=== PATIENT | male | born 1960 | race Caucasian/White ===

== ENCOUNTER 2017-05-20 14:54 | Inpatient (IN) | payer OTHER ==
[~2017-05-20] VITALS: Ht 170.2 cm; Wt 108.0 kg
[2017-05-20] MEDS ORDERED: SOD CHLORIDE 0.9% 1,000 ML IV STA (15:44)
[2017-05-20] MEDS ORDERED: HYDROmorphONE 2 MG/ML SYG IM ONE (16:00)
[2017-05-20] MEDS ORDERED: ONDANSETRON 4 MG INJ IV ONE (16:00)
[2017-05-20] MEDS ORDERED: HYDROmorphONE 1 MG/ML SYG IV STA ×2 (16:03→21:01)
[2017-05-20 16:14] LABS: ADD SCAN DIFF NO
[2017-05-20 16:16] LABS: ABNORMAL IP MESSAGE 1; HEMATOCRIT 38.9 % (42.0-52.0); HEMOGLOBIN 13.1 g/dl (14.0-18.0); MEAN CORPUSCULAR HEMOGLOBIN 26.6 pg (29.0-33.0); MEAN CORPUSCULAR HGB CONC 33.7 g/dl (32.0-37.0); MEAN CORPUSCULAR VOLUME 79.1 fl (82.0-101.0); PLATELET COUNT 93 10^3/UL (140-415); RED BLOOD COUNT 4.92 10^6/ul (4.70-6.10); WHITE BLOOD COUNT 9.5 10^3/ul (4.8-10.8)
[2017-05-20 16:30] LABS: INR 0.94; PROTIME 12.6 Sec (12.2-14.2)
[2017-05-20 16:31] LABS: PARTIAL THROMBOPLASTIN TIME 22.6 Sec (25.0-35.0)
[2017-05-20 16:34] LABS: ALBUMIN/GLOBULIN RATIO 1.56; BILIRUBIN,INDIRECT 0.3 mg/dl (0-1.1); BILIRUBIN,TOTAL 0.3 mg/dl (0.2-1.3); CALCIUM 9.6 mg/dl (8.4-10.2); CREATININE 0.68 mg/dl (0.61-1.24); POTASSIUM 3.7 mmol/L (3.5-5.1); TOTAL PROTEIN 8.2 g/dl (6.1-8.1)
--- NOTE | 2017-05-20 16:38 | RADRPT ---
PROCEDURE: XR Wrist. CLINICAL INDICATION: Trauma TECHNIQUE: AP, lateral and oblique views of the right wrist were performed. COMPARISON: No prior studies are available for comparison. FINDINGS: There is a comminuted fracture of the distal radial metadiaphysis noting mild dorsal subluxation and angulation of the distal fragment. There may be articular surface involvement. There is a minimal ly displaced ulnar styloid fracture. Positive ulnar variance is noted. The carpal alignment is oth erwise preserved. No additional fractures are seen. IMPRESSION: 1. Distal radial and ulnar fractures, as above. RPTAT: PP .Jamil Tabares MD, MD Date Time Electronically viewed and signed by .Jamil Tabares MD, on 05/20/2017 16:38 .d/
--- NOTE | 2017-05-20 16:38 | RADRPT ---
PROCEDURE: Chest x-ray CLINICAL INDICATION: Trauma with chest pain TECHNIQUE: Chest single view COMPARISON: None FINDINGS: The heart is normal in size. The pulmonary vessels are normal in caliber. The lungs are clear. Th e costophrenic angles are sharp. The visualized bony thorax is unremarkable. IMPRESSION: No acute cardiopulmonary disease. There is no evidence of pneumothorax RPTAT: HH .Galileo Maxwell MD, MD Date Time Electronically viewed and signed by .Galileo Maxwell MD, MD on 05/20/2017 16:38 .W/
--- NOTE | 2017-05-20 16:39 | RADRPT ---
PROCEDURE: XR Wrist. CLINICAL INDICATION: Trauma TECHNIQUE: AP, lateral and oblique views of the left wrist were performed. COMPARISON: No prior studies are available for comparison. FINDINGS: There is a mildly impacted and likely comminuted fracture of the distal radial metadiaphysis noting mild dorsal tilt of the distal radial articular surface. The distal ulna appears intact. Carpal ali gnment is preserved as well. There is a healed post fracture deformity of the fifth metacarpal. The re is marked soft tissue swelling about the wrist. IMPRESSION: 1. Comminuted, mildly impacted and minimally displaced distal radial fracture. 2. Soft tissue swelling. RPTAT: PP .Jamil Tabares MD, Date Time Electronically viewed and signed by .Jamil Tabares MD, on 05/20/2017 16:39 .d/
[2017-05-20 16:49] LABS: EOSINOPHILS # 0.2 10^3/ul (0.0-0.5); LYMPHOCYTES # 1.4 10^3/ul (0.8-2.9); MONOCYTE # 0.3 10^3/ul (0.3-0.9); NEUTROPHIL # 7.4 10^3/ul (1.6-7.5)
[2017-05-20 16:50] LABS: PLATELET ESTIMATE PLT APPEAR DECREASED
--- NOTE | 2017-05-20 16:50 | RADRPT ---
PROCEDURE: CT Brain without contrast. CLINICAL INDICATION: Headache status post trauma TECHNIQUE: A CT of the brain was performed on a multidetector CT scanner utilizing axial sections from the skull base through the vertex without contrast. Images were reviewed on a high-resolution uiu workstation. Exam CTDI = 42.56, and 2.44 mGy and the DLP = 725.12 mGy-cm. One or more of the following dose reduction techniques were used: Automated exposure control Adjustment of the mA and/or kV according to patient size. Use of iterative reconstruction technique. COMPARISON: None available FINDINGS: There is no evidence of intracranial hemorrhage, mass effect or midline shift. No abnormal intra-ax ial or extra-axial fluid collections are seen. The density of the brain is normal and the evangelista/whit e matter differentiation is well preserved. The osseous structures are unremarkable. Paranasal si nuses are clear. There is a small calcification in the medial aspect of the right inferior eyelid. IMPRESSION: 1. No intracranial hemorrhage, mass effect or midline shift. RPTAT: BB .Rosie Estrada MD, MD Date Time Electronically viewed and signed by .Rosie Estrada MD, on 05/20/2017 16:49 .O/
--- NOTE | 2017-05-20 17:27 | RADRPT ---
PROCEDURE: CT Cervical Spine. CLINICAL INDICATION: Trauma, neck pain TECHNIQUE: A CT of the cervical spine was performed utilizing thin section axial images from the skull base through the thoracic inlet. Sagittal and coronal reformatted images were made. The CTDI vol is 22.22 mGy and the DLP is 491.47 mGycm. One or more the following dose reduction techniques were utilized: Automated exposure control, adjus tment of the mA and / or kV according to patient's size, or use of iterative reconstruction techniqu e. COMPARISON: None. FINDINGS: Approximate 3 x 4 mm triangular calcific density is seen anterior to the superior endplate of C5 destiny tebral body. Although this appears corticated and may be chronic, an acute avulsion fracture fragmen t is not excluded. Otherwise, no fracture is seen. No dislocation is seen. Degenerative disk change s at C6-7. At C6-7 there is disk space narrowing, diffuse disk bulge, vertebral body osteophytes an d the appearance of a moderate left posterior disk protrusion with impression on the anterior spinal cord with moderate central spinal stenosis and mild bilateral foraminal stenosis. Uncovertebral deg enerative changes at C6-7. IMPRESSION: Approximate 3 x 4 mm triangular calcific density is seen anterior to the superior endplate of C5 destiny tebral body. Although this appears corticated and may be chronic, an acute avulsion fracture fragme nt is not excluded. MRI of the cervical spine is recommended for further evaluation. Degenerative c hanges. At C6-7 there is disk space narrowing, diffuse disk bulge, vertebral body osteophytes and th e appearance of a moderate left posterior disk protrusion with impression on the anterior spinal cor d with moderate central spinal stenosis and mild bilateral foraminal stenosis. Please see above. Dis cussed with HEATHER Kelley at 05:25 p.m. on 05/20/2017. RPTAT: HJES .Arash Butt MD, MD Date Time Electronically viewed and signed by .Arash Butt MD, on 05/20/2017 17:27 .S/
--- NOTE | 2017-05-20 17:33 | RADRPT ---
PROCEDURE: CT thoracic spine CLINICAL INDICATION: Trauma, back pain TECHNIQUE: A CT of the thoracic spine was performed utilizing high-resolution axial imaging from t he cervical thoracic junction through the thoracolumbar junction. Sagittal, coronal, and multiplana r reformatted images were made. The CTDIvol is 37.63 mGy and the DLP is 1502.05 mGycm. One or more the following dose reduction techniques were utilized: Automated exposure control, adjus tment of the mA and / or kV according to patient's size, or use of iterative reconstruction techniqu e. COMPARISON: FINDINGS: No acute fracture or dislocation is seen. No paraspinal soft tissue swelling is seen. No significan t focal disk protrusion or central spinal stenosis is seen in the thoracic spine. Mild degenerative disk changes at multiple levels in the mid thoracic spine. Degenerative changes at C6-7. IMPRESSION: No acute fracture or dislocation seen. Mild degenerative disk changes at multiple levels in the tho racic spine. Please see above. RPTAT: HJES .Arash Butt MD, MD Date Time Electronically viewed and signed by .Arash Butt MD, on 05/20/2017 17:33 .S/
--- NOTE | 2017-05-20 17:41 | RADRPT ---
PROCEDURE: CT Lumbar Spine. CLINICAL INDICATION: Trauma, low back pain TECHNIQUE: The study was performed on a multidetector CT scanner. Spiral axial 1 mm images were o btained through the lumbar spine and reformatted at 2.5 mm slice thickness. Sagittal and coronal ref ormations were created from the raw axial data. The images were reviewed on a PACS workstation. The administered radiation dose was CTDI vol = 38.53 mGy, DLP = 1101.09 mGy-cm. One or more the following dose reduction techniques were utilized: Automated exposure control, adjus tment of the mA and / or kV according to patient's size, or use of iterative reconstruction techniqu e. COMPARISON: No prior studies are available for comparison. FINDINGS: The vertebral bodies demonstrate normal height, alignment and osseous mineralization. Small Schmorl' s nodes at L5-S1. Small amount calcification in abdominal aorta. T12-L1: The disc and neuroforamina are unremarkable. L1-L2: The disc and neuroforamina are unremarkable. L2-L3: The disc and neuroforamina are unremarkable. L3-L4: The disc and neuroforamina are unremarkable. L4-L5: There is diffuse disk bulge, mild central spinal stenosis and mild bilateral foraminal stenos is. L5-S1: There is mild disk space narrowing, vacuum disk phenomenon, diffuse disk bulge, vertebral bod y osteophytes, and bilateral mild to moderate foraminal stenosis. Degenerative changes at sacroiliac joints. IMPRESSION: No acute fracture or dislocation seen. Degenerative changes noted above. Please see above. RPTAT: HJES .Arash Butt MD, Date Time Electronically viewed and signed by .Aarsh Butt MD, MD on 05/20/2017 17:41 .S/
[2017-05-20] MEDS ORDERED: HYDROmorphONE 2 MG/ML SYG IV STA (17:54)
[2017-05-20] MEDS: HYDROmorphONE 1 MG/ML SYG IV STA ×2 (18:01→18:02)
--- NOTE | 2017-05-20 18:15 | ERA ---
ER Documentation Chief Complaint Date/Time DATE: 05/20/17 TIME: 18:09 Chief Complaint Patient states that he from a 15 foot building HPI This is a very pleasant 57-year-old male that presents to the emergency department, brought in by himself, after he stated he fell roughly 10-15 feet just prior to arrival. 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 The patient landed on both outstretched hands and hit the front of his head. He does complain of mild neck pain and severe pain of his upper extremities. He denies any numbness or tingling of the upper extremities. He also is complaining of lower back pain that he states exacerbated when he ambulates. He complained of mild numbness of the lateral aspect of the left thigh. He stated he has used the bathroom since the incident and denied any gross hematuria. He states the headache is mild, frontal, 2 out of 10 in intensity with no changes in vision. He did not experience any hemoptysis or hematemesis. He is right-handed dominant. ROS All systems reviewed and are negative except as per history of present illness. Medications Home Meds No Active Prescriptions or Reported Meds Allergies Allergies: Coded Allergies: No Known Allergy (Unverified , 05/20/17) PMhx/Soc Medical and Surgical Hx: pt denies Medical Hx, pt denies Surgical Hx Hx Alcohol Use: Yes Hx Substance Use: No Hx Tobacco Use: No Smoking Status: Former smoker Physical Exam Vitals Vital Signs Date Time Temp Pulse Resp B/P Pulse Ox O2 Delivery O2 Flow Rate FiO2 05/20/17 18:34 99.7 81 22 131/75 94 Room Air 05/20/17 18:12 78 22 121/88 95 Room Air 05/20/17 14:59 99.7 74 20 186/96 97 Physical Exam Constitutional:Well-developed. Well-nourished. Patient appeared to be in a significant amount discomfort HEENT:Normocephalic. Atraumatic.Pupils were equal round reactive to light. Moist mucous membranes.No tonsillar exudates. Ecchymosis of the right forehead with no nasal septal hematoma no hemotympanum. Neck: No nuchal rigidity. No lymphadenopathy. Posterior cervical spine tenderness over C4-C5 with no step-offs. Respiratory: Not using accessory muscles of respiration.Lungs were clear to auscultation bilaterally. No rhonchi. No rales. No wheezing. Cardiovascular: Regular rate regular rhythm.No murmurs. No rubs were appreciated.S1, S2 normal. Distal pulses are palpable 2+ bilaterally. No flail chest no crepitus no ecchymosis. GI: Abdomen was soft. Nontender. Non Distended. No pulsatile abdominal masses or bruits. No rebound. No guarding. Bowel sounds were present and normal. No flank ecchymosis. No periumbilical ecchymosis Muscle skeletal: Lower extremities were of equal length and symmetrical with no internal or external rotation. No laxity on anterior posterior or lateral compression of the hip. Tenderness with palpation over L4-L5 with no tenderness with palpation or percussion over the thoracic spinous processes. Tenderness over the bilateral distal forearms and patient had no wrist drop, was unable to flex extend ulnar or radial deviate the bilateral wrists due to significant pain. Flexion extension of both elbows appear grossly normal. Patient was able to AB duct both upper extremities past 90 with no pain. No tenderness over the acromial clavicular process bilaterally. Normal lie to both humeral heads. Rectal: Normal sphincter tone. No gross blood Skin: No petechia, no purpura. No lesions on the palms or the soles of the feet. No maculopapular rash. NEURO: Patient was alert, awake, orientated x3.No facial droop. Gait observed and normal with no ataxia.Speech had regular rate and rhythm. No focal neurological deficits. Result Diagram: 05/20/17 1602 05/20/17 1602 Results 24 hrs Laboratory Tests Test 05/20/17 16:02 White Blood Count 9.510^3/ul Red Blood Count 4.9210^6/ul Hemoglobin 13.1g/dl Hematocrit 38.9% Mean Corpuscular Volume 79.1fl Mean Corpuscular Hemoglobin 26.6pg Mean Corpuscular Hemoglobin Concent 33.7g/dl Red Cell Distribution Width 15.0% Platelet Count 9310^3/UL Mean Platelet Volume fl Neutrophils % 78.0% Band Neutrophils % 2.0% Lymphocytes % 15.0% Monocytes % 3.0% Eosinophils % 2.0% Neutrophils # 7.410^3/ul Lymphocytes # 1.410^3/ul Monocytes # 0.310^3/ul Eosinophils # 0.210^3/ul Platelet Estimate PLT APPEAR DECREASED Prothrombin Time 12.6Sec Prothrombin Time Ratio 1.0 INR International Normalized Ratio 0.94 Activated Partial Thromboplast Time 22.6Sec Sodium Level 132mmol/L Potassium Level 3.7mmol/L Chloride Level 100mmol/L Carbon Dioxide Level 24mmol/L Anion Gap 12 Blood Urea Nitrogen 10mg/dl Creatinine 0.68mg/dl Glucose Level 148mg/dl Calcium Level 9.6mg/dl Total Bilirubin 0.3mg/dl Direct Bilirubin 0.00mg/dl Indirect Bilirubin 0.3mg/dl Aspartate Amino Transf (AST/SGOT) 25IU/L Alanine Aminotransferase (ALT/SGPT) 32IU/L Alkaline Phosphatase 74IU/L Total Protein 8.2g/dl Albumin 5.0g/dl Globulin 3.20g/dl Albumin/Globulin Ratio 1.56 Current Medications Medications (Trade) Dose Ordered Sig/Shu Route PRN Reason Start Time Stop Time Status Last Admin Dose Admin Sodium Chloride (NS) 1,000 ml @ 1,000 mls/hr Q1H STAT IV 05/20/17 15:44 05/20/17 16:43 DC 05/20/17 16:01 Hydromorphone HCl (Dilaudid) 1 mg ONCE ONCE IM 05/20/17 16:00 05/20/17 16:01 Cancel Ondansetron HCl (Zofran Inj) 4 mg ONCE ONCE IV 05/20/17 16:00 05/20/17 16:01 DC 05/20/17 16:01 Hydromorphone HCl (Dilaudid) 1 mg ONCE STAT IV 05/20/17 16:03 05/20/17 16:04 DC Hydromorphone HCl (Dilaudid) 2 mg ONCE STAT IV 05/20/17 17:28 05/20/17 17:29 DC Hydromorphone HCl (Dilaudid) 2 mg ONCE STAT IV 05/20/17 17:54 05/20/17 17:58 DC 05/20/17 18:03 Procedures/[facility] This patient presented to the emergency department after having a significant blunt trauma to the bilateral upper extremities and head. The patient had walked into the emergency department as he brought himself to the hospital and upon triage he was immediately placed in cervical spine immobilization with a c- collar. He was placed on a cardiac nurse continuous pulse oximetry and IV access was established by nursing staff. The patient received intravenous Dilaudid and Zofran for analgesic control. Compartments were soft of the bilateral upper extremities however the patient had fractures of the bilateral radius and ulna. There is no evidence of compartment syndrome. This was not an open fracture. The patient was placed in bilateral sugar tong splints for immobilization and comfort. I spoke with the orthopedic surgeon military personnel specialist Dr. Peña, who kindly stated he will be consulted on the case given that the patient is being admitted. Radiographic imaging of the left wrist indicated the followin. Comminuted, mildly impacted and minimally displaced distal radial fracture. 2. Soft tissue swelling. As obtained a CT scan of the patient's head and cervical spine. There is a questionable acute avulsion fracture of C5 and immediate neurosurgical consult was placed to Dr. Nicole who kindly immediately evaluated the patient. An MRI of the neck is been ordered on an emergent basis as requested the neurosurgeon. The MRI was reviewed by the radiologist myself and indicated that there was no acute fracture of the cervical spine and therefore at this time the patient will be admitted to the telemetry service for continued pain management. The patient will be admitted in serious condition to the hospitalist Dr. Ventura as the patient states he does not have a PCP. Critical Care: Time: 40 minutes Treatments/Evaluations: Close monitoring and treatment of unstable vital signs, cardiorespiratory, and neurologic status, while maintaining tight balance of fluid, respiratory, and cardiac interventions. Time does not include performing any of the above billable procedures. Departure Diagnosis: Primary Impression: Fall with significant injury Qualified Code: W19.XXXA - Fall with significant injury, initial encounter Additional Impressions: Distal radius fracture, left Qualified Code: S52.502A - Closed fracture of distal end of left radius, unspecified fracture morphology, initial encounter Distal radius fracture, right Qualified Code: S52.501A - Closed fracture of distal end of right radius, unspecified fracture morphology, initial encounter Fracture cervical vertebra-closed Qualified Code: S12.401A - Closed nondisplaced fracture of fifth cervical vertebra, unspecified fracture morphology, initial encounter Closed head injury Qualified Code: S09.90XA - Closed head injury, initial encounter Condition: Serious KEZIA PRAKASH May 20, 2017 18:15
--- NOTE | 2017-05-20 19:36 | CONS ---
Date/Time of Note Date/Time of Note DATE: 05/20/17 TIME: 19:04 Assessment/Plan Assessment/Plan Problems: (1) Fracture cervical vertebra-closed Status: Acute Comment: Patient status-post fall with bilateral wrist fractures. Hit head with amnesia for brief period but no LOC. Has been complaining of neck pain (as well as more severe bilateral wrist pain). Only craniocervical imaging issue is possible avulsion fracture in C-spine. This is likely chronic, but given mechanism acute fracture cannot be entirely ruled out. If acute fracture could be stable but also could be unstable. There are no signs or symptoms of spinal cord dysfunction. MRI has already been ordered. This will be useful to assess for ligamentous injury. If no ligamentous injury, then significant acute fracture is essentially ruled out. If significant signal abnormality in ligaments then will need further assessment wrt acute injury and further recommendations will be made. 1) Baudette collar should be ordered as extraction collar is not appropriate for ongoing use. 2) Bedrest until MRI is assessed. 3) Even if MRI negative, would recommend continuing C-spine collar until flexion /extension x-rays can be obtained. Qualifiers: Qualified Code: S12.401A - Closed nondisplaced fracture of fifth cervical vertebra, unspecified fracture morphology, initial encounter Consultation Date/Type/Reason Admit Date/Time Date of Consultation: May 20, 2017 Reason for Consultation possible c-spine fracture Hx of Present Illness This is a primarily singaporean speaking man seen with ER foreign language interpreter. 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 He fell out of the cab, falling about 10- 15 feet and landing on his outstretched arms as well as hitting either the front or top of his head. This was witnessed and there was no LOC as he began screaming in pain right away. The patient is vaguely amnestic. He remembers falling and then lying on the ground but does not remember hitting. He immediately had very severe bilateral arm/wrist pain and indeed has been found to have bilateral colles fractures. He also had signficant neck pain and to a lesser degree low back pain. Mild headache as well. No confusion. He was a walk-in to the ER. Had been able to urinate without difficulty. Initially he was having LLE pain, but this has resolved. Denies numbness in any extremity. Does not think he has weakness, but it is difficult for him to say for sure wrt UEs since they are fractured and splinted. No pain radiating from neck to down the arms. Respiratory: No shortness of breath Cardiovascular: No chest pain Gastrointestinal: No pain Genitourinary: No hematuria Musculoskeletal: back pain, neck pain Neurologic: headache, No confusion, No focal-weakness Past Medical History Medical History: diabetes Past Surgical History Past Surgical Hx: no surgical history Social History Alcohol Use: occasionally Smoking Status: Former smoker Other Social History Originally from [place]. at the bedside. Exam/Review of Systems Vital Signs Vitals Vital Signs Date Time Temp Pulse Resp B/P Pulse Ox O2 Delivery O2 Flow Rate FiO2 05/20/17 18:34 99.7 81 22 131/75 94 Room Air Exam Constitutional: alert, oriented, well developed Head: other (abrasions over forehead and crown) Eyes: EOMI, PERRL Neck: other (extraction collar in place) Extremities: other (bilateral wrist splints), No edema Neurological: nl mental status, nl speech, No confused, No lethargic, No numbness (A+Ox3, speech clear, appropriate in responses. face symmetric, tongue midline. Deltoids 5/5, wiggles fingers bilaterally, more detailed UE strength exam impossible; LEs 5/5 quad/ham/dorsi/ plantar; normal muscle bulk; sensation intact LT both hands, LEs, no sensory level; DTRs 2+/2 bicep/knees/ankles; toes downgoing bilat) Results I reviewed CT C-spine -small anterior osteophyte C4-5 either acutely or chronically avulsed. straightening of normal lordosis but otherwise no abnormalities of alignment; degen change worst at C5-6 but not severe; prevertebral soft tissue appears to be within normal limits CT brain normal; CT T-spine and LS-spine unremarkable other than degenerative changes Result Diagram: 05/20/17 1602 05/20/17 1602 Results 24 hrs Laboratory Tests Test 05/20/17 16:02 White Blood Count 9.5 Red Blood Count 4.92 Hemoglobin 13.1 L Hematocrit 38.9 L Mean Corpuscular Volume 79.1 L Mean Corpuscular Hemoglobin 26.6 L Mean Corpuscular Hemoglobin Concent 33.7 Red Cell Distribution Width 15.0 H Platelet Count 93 L Mean Platelet Volume Neutrophils % 78.0 H Band Neutrophils % 2.0 Lymphocytes % 15.0 Monocytes % 3.0 Eosinophils % 2.0 Neutrophils # 7.4 Lymphocytes # 1.4 Monocytes # 0.3 Eosinophils # 0.2 Platelet Estimate PLT APPEAR DECREASED Prothrombin Time 12.6 Prothrombin Time Ratio 1.0 INR International Normalized Ratio 0.94 Activated Partial Thromboplast Time 22.6 L Sodium Level 132 L Potassium Level 3.7 Chloride Level 100 Carbon Dioxide Level 24 Anion Gap 12 Blood Urea Nitrogen 10 Creatinine 0.68 Glucose Level 148 Calcium Level 9.6 Total Bilirubin 0.3 Direct Bilirubin 0.00 Indirect Bilirubin 0.3 Aspartate Amino Transf (AST/SGOT) 25 Alanine Aminotransferase (ALT/SGPT) 32 Alkaline Phosphatase 74 Total Protein 8.2 H Albumin 5.0 H Globulin 3.20 Albumin/Globulin Ratio 1.56 ELVA OLIVEIRA MD May 20, 2017 19:16
--- NOTE | 2017-05-20 20:37 | RADRPT ---
PROCEDURE: MRI Cervical Spine. CLINICAL INDICATION: Neck pain following trauma and possible C5 fracture TECHNIQUE: An MRI of the cervical spine [facility] the following sequences: Sagittal T1 weighted, sagittal and axial T2 weighted, sagittal T2 weighted with fat saturation, delete the and axial GRE. COMPARISON: CT c-spine 05/20/2017 FINDINGS: There is straightening of the normal lordosis of the cervical spine. Preservation of vertebral body heights and signal are noted. No acute fractures, traumatic subluxations, or ligamentous injury is noted. The vertebral bodies are normal in height and signal intensity. The signal intensities of t he discs are remarkable for disk desiccation at the C3-4 through C6-7 levels.. The cervical cord is normal in caliber and signal intensity. The craniocervical junction is unremarkable. The prevertebra l soft tissues are normal. The specific axial levels are as follows: Occiput to C2: No evidence for pathology or stenosis is present. C2-3: The central canal, subarticular recess and neural foramen are patent. C3-4: Disk desiccation is present with a moderate 4.9 mm broad-based disk osteophyte complex. AP ca nal dimension is 8.7 mm. Mild bilateral facet arthropathy and uncovertebral osteophytes are present . The above findings contribute to a mild central canal stenosis, bilateral subarticular recess lucio nosis, and mild bilateral neural foraminal stenosis. C4-5: Disk desiccation is present with a mild 2 mm broad-based bulge. Mild bilateral uncovertebral osteophyte and facet arthropathy is present. The central canal, subarticular recess, and neural for amen are patent. C5-6: Disk desiccation is present with a mild broad-based 2-mm disk osteophyte complex. AP canal di mension is 9.9 mm This results in a mild central canal stenosis without subarticular recess or neura l foraminal stenosis. C6-7: Disk desiccation is present with a large 5 mm broad-based disk osteophyte complex. Superimpose d on this large broad-based disk osteophyte complex is a central 3 mm disk extrusion which herniates caudally to the mid C7 level. This is approximately 6.5 mm in length. AP canal dimension is 7 mm. Bilateral uncovertebral osteophytes and facet arthropathy is present. This results in a moderate ce ntral, bilateral subarticular recess stenosis , and bilateral severe neural foraminal stenosis. C7-T1: The intervertebral disk is normal height and signal. A 3 mm disk osteophyte protrusion is pr esent. AP canal dimension is 9.7 mm. This contributes to mild central canal stenosis without subart icular recess or neural foraminal stenosis. IMPRESSION: 1. No evidence for acute fractures or traumatic subluxations. 2. 3 mm AP by 6.5 mm superior inferiorly central disk extrusion superimposed on large broad-based d isk osteophyte complex at C6-7. 3. Multilevel broad-based disk osteophyte complexes at the C3-4 through C7-T1 levels with moderate central canal stenosis at C6-7 and mild at C3-4, C5-6 and C7-T1 levels. 4. Multilevel neural foraminal stenosis at the C3-4 and C6-7 levels. 5. Straightening of the normal cervical lordosis. A call report was made to Alyssa Saucedo at 05/20/2017 8:33:38 PM following the completion of the examination by the undersigned. RPTAT: HDC .Teresita Murcia MD, Date Time Electronically viewed and signed by .Teresita Murcia MD, MD on 05/20/2017 20:37 .C/
[2017-05-20] MEDS ORDERED: ONDANSETRON 4 MG INJ IV STA (21:01)
[2017-05-20 22:00] VITALS: BP 164/82; RESP 18
[2017-05-20 22:07] VITALS: PULSE 75; TEMP 98.5
[2017-05-20 22:59] VITALS: Ht 170.2 cm; Wt 108.0 kg
[2017-05-20] MEDS ORDERED: METF-480 PO (23:08)
--- NOTE | 2017-05-20 23:27 | HP ---
Date/Time of Note Date/Time of Note DATE: 05/20/17 TIME: 23:23 Assessment/Plan VTE Prophylaxis VTE Prophylaxis Intervention: SCD's Assessment/Plan Chief Complaint/Hosp Course This is a 57-year-old male being admitted to the [facility] floor: #1 Traumatic fall: Patient sustained a traumatic fall while on a tractor type vehicle. He has sustained bilateral fractures of the wrists please see x-rays were done. The pain however MRI did not show any acute fractures please see further report for additional findings. At the current time will await further recommendations from the consultants of neurosurgery and orthopedic surgery. Patient will remain in C-spine collar. Patient has already been casted in the wrists. Please see additional CT scan imaging for further information. #2 neck pain: Status post traumatic fall MRI did not show any evidence for acute fractures or traumatic subluxations. Please see MRI report for further information. Keep the patient in in C spine collar. Await neurosurgery. #3 bilateral wrist fractures: Please see x-rays for further information regarding the fracture. Patient currently has been casted both the right upper extremities. Follow orthopedic recommendations. #4 Diabetes mellitus: Patient is on oral medications. Will check a hemoglobin A1c. Insulin sliding scale. #5 DVT and GI prophylaxis: SCDs, Protonix Further treatment strategy as per the course. Problems: HPI/ROS Admit Date/Time Admit Date/Time Hx of Present Illness Chief complaint: Fall injury to arms pain in the neck This is a very pleasant 57-year-old male that presents to the emergency department, brought in by himself, after he stated he fell roughly 10-15 feet just prior to arrival. 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 The patient landed on both outstretched hands and hit the front of his head. He does complain of mild neck pain and severe pain of his upper extremities. He denies any numbness or tingling of the upper extremities. He also is complaining of lower back pain that he states exacerbated when he ambulates. He complained of mild numbness of the lateral aspect of the left thigh. He stated he has used the bathroom since the incident and denied any gross hematuria. He states the headache is mild, frontal, 2 out of 10 in intensity with no changes in vision. He did not experience any hemoptysis or hematemesis. He is right-handed dominant. ROS Const: As per HPI Eyes : No pain discharge or redness or change in visual acuity ENT: No pain, sore throat, congestion, congestion, dysphagia or discharge Respiratory: No shortness of breath, cough, sputum, wheezing, or pleuritic pain Cardiovascular: No chest pain, palpitation, PND, or edema GI : no change in appetite, abdominal pain, nausea, vomiting, diarrhea, constipation, or change in the color his stool Genitourinary: No dysuria, hematuria, flank pain , discharge or CVA tenderness Musculoskeletal: As per HPI Skin: No rash, bruising or hives Neuro: As per HPI Endocrine: No polyuria, polydipsia, temperature intolerance Psych: No hallucination, depression, anxiety or suicidal ideation Respiratory: No shortness of breath Cardiovascular: No chest pain Gastrointestinal: No pain Genitourinary: No hematuria Musculoskeletal: back pain, neck pain Neurologic: headache, No confusion, No focal-weakness PMH/Family/Social Past Medical History Medical History: diabetes Past Surgical History Past Surgical Hx: no surgical history Social History Alcohol Use: occasionally Smoking Status: Former smoker Exam/Review of Systems Vital Signs Vitals Vital Signs Date Time Temp Pulse Resp B/P Pulse Ox O2 Delivery O2 Flow Rate FiO2 05/20/17 22:07 98.5 75 16 130/72 95 Room Air Exam Exam General: Mild distress pain HEENT: Atraumatic, normocephalic. The pupils are equal, round and reactive. Extraocular motor are intact Neck: Tender to palpation of the C-spine around the C4-C7 area Chest: Nontender Lungs: Clear to auscultation bilaterally no crackles rales or wheezing Heart: Normal S1-S2, Regular rhythm and rate. No murmur, S3, or S4 Abdomen: Soft , nontender, nondistended , bowel sounds are present. No guarding no rebound tenderness , No masses or organomegaly. No costovertebral temporal angle mass Extremities: Bilateral casts of the right upper extremities, tenderness to palpation along the thoracic and lumbar spine. Neurologic: Normal mental status, speech normal, cranial nerves II through XII are intact, motor and sensory are intact, no focal weakness Additional Comments PROCEDURE: MRI Cervical Spine. CLINICAL INDICATION: Neck pain following trauma and possible C5 fracture TECHNIQUE: An MRI of the cervical spine was performed on a hi-definition high- resolution MRI scanner utilizing the following sequences: Sagittal T1 weighted, sagittal and axial T2 weighted, sagittal T2 weighted with fat saturation, delete the and axial GRE. COMPARISON: CT c-spine 05/20/2017 FINDINGS: There is straightening of the normal lordosis of the cervical spine. Preservation of vertebral body heights and signal are noted. No acute fractures , traumatic subluxations, or ligamentous injury is noted. The vertebral bodies are normal in height and signal intensity. The signal intensities of the discs are remarkable for disk desiccation at the C3-4 through C6-7 levels.. The cervical cord is normal in caliber and signal intensity. The craniocervical junction is unremarkable. The prevertebral soft tissues are normal. The specific axial levels are as follows: Occiput to C2: No evidence for pathology or stenosis is present. C2-3: The central canal, subarticular recess and neural foramen are patent. C3-4: Disk desiccation is present with a moderate 4.9 mm broad-based disk osteophyte complex. AP canal dimension is 8.7 mm. Mild bilateral facet arthropathy and uncovertebral osteophytes are present. The above findings contribute to a mild central canal stenosis, bilateral subarticular recess stenosis, and mild bilateral neural foraminal stenosis. C4-5: Disk desiccation is present with a mild 2 mm broad-based bulge. Mild bilateral uncovertebral osteophyte and facet arthropathy is present. The central canal, subarticular recess, and neural foramen are patent. C5-6: Disk desiccation is present with a mild broad-based 2-mm disk osteophyte complex. AP canal dimension is 9.9 mm This results in a mild central canal stenosis without subarticular recess or neural foraminal stenosis. C6-7: Disk desiccation is present with a large 5 mm broad-based disk osteophyte complex. Superimposed on this large broad-based disk osteophyte complex is a central 3 mm disk extrusion which herniates caudally to the mid C7 level. This is approximately 6.5 mm in length. AP canal dimension is 7 mm. Bilateral uncovertebral osteophytes and facet arthropathy is present. This results in a moderate central, bilateral subarticular recess stenosis , and bilateral severe neural foraminal stenosis. C7-T1: The intervertebral disk is normal height and signal. A 3 mm disk osteophyte protrusion is present. AP canal dimension is 9.7 mm. This contributes to mild central canal stenosis without subarticular recess or neural foraminal stenosis. IMPRESSION: 1. No evidence for acute fractures or traumatic subluxations. 2. 3 mm AP by 6.5 mm superior inferiorly central disk extrusion superimposed on large broad-based disk osteophyte complex at C6-7. 3. Multilevel broad-based disk osteophyte complexes at the C3-4 through C7-T1 levels with moderate central canal stenosis at C6-7 and mild at C3-4, C5-6 and C7-T1 levels. 4. Multilevel neural foraminal stenosis at the C3-4 and C6-7 levels. 5. Straightening of the normal cervical lordosis. A call report was made to Alyssa Saucedo at 05/20/2017 8:33:38 PM following the completion of the examination by the undersigned. RPTAT: HDC .Teresita Murcia MD, MD Date Time Electronically viewed and signed by .Teresita Murcia MD, MD on 05/20/2017 20: 37 PROCEDURE: CT Brain without contrast. CLINICAL INDICATION: Headache status post trauma TECHNIQUE: A CT of the brain was performed on a multidetector CT scanner utilizing axial sections from the skull base through the vertex without contrast. Images were reviewed on a high-resolution PACS workstation. Exam CTDI = 42.56, and 2.44 mGy and the DLP = 725.12 mGy-cm. One or more of the following dose reduction techniques were used: Automated exposure control Adjustment of the mA and/or kV according to patient size. Use of iterative reconstruction technique. COMPARISON: None available FINDINGS: There is no evidence of intracranial hemorrhage, mass effect or midline shift. No abnormal intra-axial or extra-axial fluid collections are seen. The density of the brain is normal and the evangelista/white matter differentiation is well preserved. The osseous structures are unremarkable. Paranasal sinuses are clear. There is a small calcification in the medial aspect of the right inferior eyelid. IMPRESSION: 1. No intracranial hemorrhage, mass effect or midline shift. RPTAT: BB .Rosie Estrada MD, Date Time Electronically viewed and signed by .Rosie Estrada MD, MD on 05/20/2017 16:49 PROCEDURE: CT Cervical Spine. CLINICAL INDICATION: Trauma, neck pain TECHNIQUE: A CT of the cervical spine was performed utilizing thin section axial images from the skull base through the thoracic inlet. Sagittal and coronal reformatted images were made. The CTDIvol is 22.22 mGy and the DLP is 491.47 mGycm. One or more the following dose reduction techniques were utilized: Automated exposure control, adjustment of the mA and / or kV according to patient's size, or use of iterative reconstruction technique. COMPARISON: None. FINDINGS: Approximate 3 x 4 mm triangular calcific density is seen anterior to the superior endplate of C5 vertebral body. Although this appears corticated and may be chronic, an acute avulsion fracture fragment is not excluded. Otherwise, no fracture is seen. No dislocation is seen. Degenerative disk changes at C6- 7. At C6-7 there is disk space narrowing, diffuse disk bulge, vertebral body osteophytes and the appearance of a moderate left posterior disk protrusion with impression on the anterior spinal cord with moderate central spinal stenosis and mild bilateral foraminal stenosis. Uncovertebral degenerative changes at C6-7. IMPRESSION: Approximate 3 x 4 mm triangular calcific density is seen anterior to the superior endplate of C5 vertebral body. Although this appears corticated and may be chronic, an acute avulsion fracture fragment is not excluded. MRI of the cervical spine is recommended for further evaluation. Degenerative changes. At C6-7 there is disk space narrowing, diffuse disk bulge, vertebral body osteophytes and the appearance of a moderate left posterior disk protrusion with impression on the anterior spinal cord with moderate central spinal stenosis and mild bilateral foraminal stenosis. Please see above. Discussed with HEATHER Kelley at 05:25 p.m. on 05/20/2017. RPTAT: HJES .Arash Butt MD, MD Date Time Electronically viewed and signed by .Arash Butt MD, MD on 05/20/2017 17:27 PROCEDURE: Chest x-ray CLINICAL INDICATION: Trauma with chest pain TECHNIQUE: Chest single view COMPARISON: None FINDINGS: The heart is normal in size. The pulmonary vessels are normal in caliber. The lungs are clear. The costophrenic angles are sharp. The visualized bony thorax is unremarkable. IMPRESSION: No acute cardiopulmonary disease. There is no evidence of pneumothorax RPTAT: HH .Galileo Maxwell MD, MD Date Time Electronically viewed and signed by .Galileo Maxwell MD, MD on 05/20/2017 16:38 PROCEDURE: CT Lumbar Spine. CLINICAL INDICATION: Trauma, low back pain TECHNIQUE: The study was performed on a multidetector CT scanner. Spiral axial 1 mm images were obtained through the lumbar spine and reformatted at 2.5 mm slice thickness. Sagittal and coronal reformations were created from the raw axial data. The images were reviewed on a PACS workstation. The administered radiation dose was CTDI vol = 38.53 mGy, DLP = 1101.09 mGy-cm. One or more the following dose reduction techniques were utilized: Automated exposure control, adjustment of the mA and / or kV according to patient's size, or use of iterative reconstruction technique. COMPARISON: No prior studies are available for comparison. FINDINGS: The vertebral bodies demonstrate normal height, alignment and osseous mineralization. Small Schmorl's nodes at L5-S1. Small amount calcification in abdominal aorta. T12-L1: The disc and neuroforamina are unremarkable. L1-L2: The disc and neuroforamina are unremarkable. L2-L3: The disc and neuroforamina are unremarkable. L3-L4: The disc and neuroforamina are unremarkable. L4-L5: There is diffuse disk bulge, mild central spinal stenosis and mild bilateral foraminal stenosis. L5-S1: There is mild disk space narrowing, vacuum disk phenomenon, diffuse disk bulge, vertebral body osteophytes, and bilateral mild to moderate foraminal stenosis. Degenerative changes at sacroiliac joints. IMPRESSION: No acute fracture or dislocation seen. Degenerative changes noted above. Please see above. RPTAT: HJES .Arash Butt MD, MD Date Time Electronically viewed and signed by .Arash Butt MD, MD on 05/20/2017 17:41 PROCEDURE: CT thoracic spine CLINICAL INDICATION: Trauma, back pain TECHNIQUE: A CT of the thoracic spine was performed utilizing high-resolution axial imaging from the cervical thoracic junction through the thoracolumbar junction. Sagittal, coronal, and multiplanar reformatted images were made. The CTDIvol is 37.63 mGy and the DLP is 1502.05 mGycm. One or more the following dose reduction techniques were utilized: Automated exposure control, adjustment of the mA and / or kV according to patient's size, or use of iterative reconstruction technique. COMPARISON: FINDINGS: No acute fracture or dislocation is seen. No paraspinal soft tissue swelling is seen. No significant focal disk protrusion or central spinal stenosis is seen in the thoracic spine. Mild degenerative disk changes at multiple levels in the mid thoracic spine. Degenerative changes at C6-7. IMPRESSION: No acute fracture or dislocation seen. Mild degenerative disk changes at multiple levels in the thoracic spine. Please see above. RPTAT: HJES .Arash Butt MD, Date Time Electronically viewed and signed by .Arash Butt MD, MD on 05/20/2017 17:33 PROCEDURE: XR Wrist. CLINICAL INDICATION: Trauma TECHNIQUE: AP, lateral and oblique views of the right wrist were performed. COMPARISON: No prior studies are available for comparison. FINDINGS: There is a comminuted fracture of the distal radial metadiaphysis noting mild dorsal subluxation and angulation of the distal fragment. There may be articular surface involvement. There is a minimally displaced ulnar styloid fracture. Positive ulnar variance is noted. The carpal alignment is otherwise preserved. No additional fractures are seen. IMPRESSION: 1. Distal radial and ulnar fractures, as above. RPTAT: PP .Jamil Tabares MD, MD Date Time Electronically viewed and signed by .Jamil Tabares MD, MD on 05/20/2017 16:38 PROCEDURE: XR Wrist. CLINICAL INDICATION: Trauma TECHNIQUE: AP, lateral and oblique views of the left wrist were performed. COMPARISON: No prior studies are available for comparison. FINDINGS: There is a mildly impacted and likely comminuted fracture of the distal radial metadiaphysis noting mild dorsal tilt of the distal radial articular surface. The distal ulna appears intact. Carpal alignment is preserved as well. There is a healed post fracture deformity of the fifth metacarpal. There is marked soft tissue swelling about the wrist. IMPRESSION: 1. Comminuted, mildly impacted and minimally displaced distal radial fracture. 2. Soft tissue swelling. RPTAT: PP .Jamil Tabares MD, MD Date Time Electronically viewed and signed by .Jamil Tabares MD, MD on 05/20/2017 16:39 Labs Result Diagram: 05/20/17 1602 05/20/17 1602 LEANDRA KELLY May 20, 2017 23:26
[2017-05-20] MEDS ORDERED: BISACODYL (EC) 5 MG TAB PO PRN (23:30)
[2017-05-20] MEDS ORDERED: DOCUSATE SODIUM 100 MG CAP PO PRN (23:30)
[2017-05-20] MEDS ORDERED: NACL 0.9% 3 ML SYG IV SCH (23:30)
[2017-05-20] MEDS ORDERED: ONDANSETRON 4 MG INJ IV PRN (23:30)
[2017-05-21 02:00] VITALS: BP 124/60; RESP 18
[2017-05-21] MEDS: HYDROmorphONE 1 MG/ML SYG IV PRN ×3 (05:05→19:53)
[2017-05-21] MEDS ORDERED: PANTOPRAZOLE 40 MG INJ IV SCH (06:00)
[2017-05-21 06:08] LABS: ADD SCAN DIFF NO
[2017-05-21 06:54] LABS: ALBUMIN 4.4 g/dl (3.3-4.9); ALBUMIN/GLOBULIN RATIO 1.76; BILIRUBIN,INDIRECT 0.3 mg/dl (0-1.1); BILIRUBIN,TOTAL 0.3 mg/dl (0.2-1.3); CALCIUM 9.2 mg/dl (8.4-10.2); CHOL/HDL RATIO 6.7 RATIO; CREATININE 0.72 mg/dl (0.61-1.24); TOTAL PROTEIN 6.9 g/dl (6.1-8.1)
[2017-05-21 07:23] LABS: THYROID STIMULATING HORMONE 1.35 MIU/L (0.465-4.680)
[2017-05-21 08:07] VITALS: BP 136/73; RESP 20
[2017-05-21] MEDS ORDERED: GLUCOSE GEL 15 GRAM TUBE PO PRN ×2 (09:00)
[2017-05-21] MEDS ORDERED: GLUCAGON 1 MG INJ IM PRN (09:00)
[2017-05-21] MEDS ORDERED: DEXTROSE 50% 50 ML SYRINGE IV PRN ×2 (09:00)
[2017-05-21] MEDS ORDERED: GLUCOSE GEL 15 GRAM TUBE BUCCAL PRN (09:00)
[2017-05-21 09:06] LABS: ABNORMAL IP MESSAGE 1; BASOPHILS % 0.6 % (0.0-2.0); EOSINOPHILS # 0.1 10^3/ul (0.0-0.5); EOSINOPHILS % 1.9 % (0.0-7.0); HEMATOCRIT 36.1 % (42.0-52.0); HEMOGLOBIN 11.8 g/dl (14.0-18.0); LYMPHOCYTES # 1.5 10^3/ul (0.8-2.9); LYMPHOCYTES % 21.4 % (15.0-51.0); MEAN CORPUSCULAR HEMOGLOBIN 26.1 pg (29.0-33.0); MEAN CORPUSCULAR HGB CONC 32.7 g/dl (32.0-37.0); MEAN CORPUSCULAR VOLUME 79.9 fl (82.0-101.0); MONOCYTE # 0.6 10^3/ul (0.3-0.9); NEUTROPHIL # 4.5 10^3/ul (1.6-7.5); NEUTROPHILS % 66.7 % (39.0-77.0); RED BLOOD COUNT 4.52 10^6/ul (4.70-6.10); RED CELL DISTRIBUTION WIDTH 15.6 % (11.5-14.5); WHITE BLOOD COUNT 6.8 10^3/ul (4.8-10.8)
[2017-05-21 09:32] LABS: PLATELET COUNT 81 10^3/UL (140-415)
[2017-05-21] MEDS: INSULIN ASPART [NOVOLOG] 3 ML PEN SC SCH ×3 (12:04→20:55)
[2017-05-21] MEDS: HYDROCODONE/APAP (5/325) TAB PO PRN (12:06)
--- NOTE | 2017-05-21 14:27 | PN ---
Date/Time of Note Date/Time of Note DATE: 05/21/17 TIME: 14:26 Assessment/Plan VTE Prophylaxis VTE Prophylaxis Intervention: heparin Lines/Catheters IV Catheter Type (from Nrs): Saline Lock Assessment/Plan Chief Complaint/Hosp Course 1. Status post traumatic fall with resutant comminuted, mildly impacted and minimally displaced distal radial fracture of the left arm and; distal radial and ulnar fractures of the right. Continue pain control. Await orthopedic surgery evaluation. 2. Neck pain status post mechanical fall. Closed nondisplaced fracture of the fifth cervical vertebra as per neurosurgery notes. MRI of the cervical spine showing no evidence for acute fractures or traumatic subluxations. Await further neurosurgery input. Continue pain control. Continue cervical collar. 3. Type 2 diabetes mellitus with a hemoglobin A1c 7.3. Continue sliding scale insulin. 4. Dyslipidemia. Suboptimal triglycerides, LDL, and total cholesterol. Will start the patient on statins. 5. Microcytic, hypochromic anemia. Etiology unclear. Will monitor H&H closely. Will order an iron panel. 6. Thrombocytopenia. Etiology unclear. Will monitor platelet count closely. If worsening, we will hold any anticoagulation. 7. Essential hypertension. We will start the patient on routine antihypertensives. Patient also was started on PRN antihypertensives for any systolic blood pressure readings greater than 160 mmHg. 8. Fluids, electrolytes, and nutrition. Carbohydrate controlled, low- cholesterol diet. 9. DVT prophylaxis. Subcutaneous heparin. 10. Gastrointestinal prophylaxis. Proton pump inhibitors. 11. Plan. Continue pain control. Continue neurosurgical recommendations. Await orthopedic surgery evaluation. Case discussed with Dr. Wallace. Problems: Subjective 24 Hr Interval Summary Free Text/Dictation Complains of neck pain and bilateral forearm pain. Exam/Review of Systems Vital Signs Vitals Vital Signs Date Time Temp Pulse Resp B/P Pulse Ox O2 Delivery O2 Flow Rate FiO2 05/21/17 08:07 97.9 72 20 136/73 100 05/20/17 22:07 Room Air Intake and Output 05/20/17 05/20/17 05/21/17 15:00 23:00 07:00 Intake Total 200 ml Balance 200 ml Exam General: Obese 57 year-old male lying in bed in no apparent distress. HEENT: Normocephalic, atraumatic. Eyes: Anicteric sclerae, conjunctivae clear. ENT: Nasal septum midline, oral mucosa moist. Neck supple, no JVD noticed. Respiratory: Bilaterally clear breath sounds. No use of accessory muscles of respiration. No adventitious breath sounds. Cardiovascular: S1, S2 heard. No murmurs or gallops. Abdomen: Soft, nontender, and nondistended. Bowel sounds positive in all 4 quadrants. Genitourinary: Deferred. Extremities: No cyanosis, no clubbing. Bilateral forearm plaster cast. Able to move all fingers on bilateral arms. Neurologic: Cranial nerves II through XII grossly intact. The patient is awake, alert, and oriented. Skin: Normal skin turgor. No skin rashes. Results Result Diagram: 05/21/17 0527 05/21/17 0527 Results 24 hrs Laboratory Tests Test 05/20/17 16:02 05/21/17 05:27 05/21/17 11:52 White Blood Count 9.5 6.8 # Red Blood Count 4.92 4.52 L Hemoglobin 13.1 L 11.8 L Hematocrit 38.9 L 36.1 L Mean Corpuscular Volume 79.1 L 79.9 L Mean Corpuscular Hemoglobin 26.6 L 26.1 L Mean Corpuscular Hemoglobin Concent 33.7 32.7 Red Cell Distribution Width 15.0 H 15.6 H Platelet Count 93 L 81 L Mean Platelet Volume Neutrophils % 78.0 H 66.7 Band Neutrophils % 2.0 Lymphocytes % 15.0 21.4 Monocytes % 3.0 9.0 Eosinophils % 2.0 1.9 Neutrophils # 7.4 4.5 Lymphocytes # 1.4 1.5 Monocytes # 0.3 0.6 Eosinophils # 0.2 0.1 Platelet Estimate PLT APPEAR DECREASED Prothrombin Time 12.6 Prothrombin Time Ratio 1.0 INR International Normalized Ratio 0.94 Activated Partial Thromboplast Time 22.6 L Sodium Level 132 L 133 L Potassium Level 3.7 4.0 Chloride Level 100 102 Carbon Dioxide Level 24 26 Anion Gap 12 9 Blood Urea Nitrogen 10 9 Creatinine 0.68 0.72 Glucose Level 148 155 Calcium Level 9.6 9.2 Total Bilirubin 0.3 0.3 Direct Bilirubin 0.00 0.00 Indirect Bilirubin 0.3 0.3 Aspartate Amino Transf (AST/SGOT) 25 20 Alanine Aminotransferase (ALT/SGPT) 32 30 Alkaline Phosphatase 74 67 Total Protein 8.2 H 6.9 # Albumin 5.0 H 4.4 Globulin 3.20 2.50 Albumin/Globulin Ratio 1.56 1.76 Basophils % 0.6 Nucleated Red Blood Cells % 0.0 Basophils # 0.0 Nucleated Red Blood Cells # 0.0 Hemoglobin A1c 7.3 H Triglycerides Level 252 H Cholesterol Level 208 H LDL Cholesterol, Calculated 127 HDL Cholesterol 31 Cholesterol/HDL Ratio 6.7 Thyroid Stimulating Hormone (TSH) 1.350 Bedside Glucose 148 Medications Medications Current Medications Ondansetron HCl (Zofran Inj) 4 mg Q6H PRN IV NAUSEA AND/OR VOMITING; Start at 23:30 Hydromorphone HCl (Dilaudid) 1 mg Q4H PRN IV SEVERE PAIN LEVEL 7-10 Last administered on 05/21/17 10:45; Admin Dose 1 MG; Start 05/20/17 at 23:30 Docusate Sodium (Colace) 100 mg Q12H PRN PO CONSTIPATION; Start 05/20/17 at 23: 30 Bisacodyl (Dulcolax) 5 mg DAILY PRN PO CONSTIPATION; Start 05/20/17 at 23:30 Pantoprazole (Protonix Iv) 40 mg DAILY@06 IV Last administered on 05/21/17 05: 05; Admin Dose 40 MG; Start 05/21/17 at 06:00 Diagnostic Test (Pha) (Accu-Chek) 1 ea 02 XX ; Start 05/22/17 at 02:00 Miscellaneous Information 1 ea NOTE XX ; Start 05/21/17 at 09:00 Glucose (Glutose) 15 gm Q15M PRN PO DECREASED GLUCOSE; Start 05/21/17 at 09:00 Glucose (Glutose) 22.5 gm Q15M PRN PO DECREASED GLUCOSE; Start 05/21/17 at 09: 00 Dextrose (D50w Syringe) 25 ml Q15M PRN IV DECREASED GLUCOSE; Start 05/21/17 at 09:00 Dextrose (D50w Syringe) 50 ml Q15M PRN IV DECREASED GLUCOSE; Start 05/21/17 at 09:00 Glucagon (Glucagen) 1 mg Q15M PRN IM DECREASED GLUCOSE; Start 05/21/17 at 09:00 Glucose (Glutose) 15 gm Q15M PRN BUCCAL DECREASED GLUCOSE; Start 05/21/17 at 09 :00 Acetaminophen/ Hydrocodone Bitart ([place] (5/325)) 1 tab Q4H PRN PO Pain Last administered on 05/21/17t 12:06; Admin Dose 1 TAB; Start 05/21/17 at 11:00 CARLOS ETIENNE NP May 21, 2017 14:27
[2017-05-21 14:29] LABS: IRON 31 ug/dl (35-150)
[2017-05-21] MEDS ORDERED: hydrALAzine 20 MG INJ IV PRN (14:30)
[2017-05-21 14:38] LABS: TOTAL IRON BINDING CAPACITY 323 ug/dl (241-421)
[2017-05-21 15:34] VITALS: BP 126/80; RESP 20
[2017-05-21 20:22] VITALS: BP 136/75; RESP 18
[2017-05-21] MEDS: ATORVASTATIN 40 MG TAB PO SCH (20:48)
[2017-05-21] MEDS: BENAZEPRIL 5 MG TAB PO SCH (20:48)
[2017-05-21] MEDS: HEPARIN 5,000 UNIT/0.5 ML VIAL SC SCH (20:51)
[2017-05-22 02:00] VITALS: BP 124/74; RESP 18
[2017-05-22] MEDS: ACCU-CHEK XX SCH (02:00)
[2017-05-22] MEDS ORDERED: ACCU-CHEK XX SCH (02:00)
[2017-05-22 05:16] LABS: ADD UMIC YES; UR BILIRUBIN (Dip) NEGATIVE (NEGATIVE); UR BLOOD (Dip) TRACE (NEGATIVE); UR CLARITY CLEAR (CLEAR); UR COLOR LT. YELLOW (YELLOW); UR KETONES (Dip) NEGATIVE (NEGATIVE); UR LEUKOCYTE ESTERASE (Dip) NEGATIVE (NEGATIVE); UR NITRITE (Dip) NEGATIVE (NEGATIVE); UR TOTAL PROTEIN (Dip) NEGATIVE (NEGATIVE); UR UROBILINOGEN (Dip) 0.2 E.U./dL (0.1-1.0)
[2017-05-22] MEDS: PANTOPRAZOLE (EC) 40 MG TAB PO SCH (05:45)
[2017-05-22] MEDS: HYDROCODONE/APAP (5/325) TAB PO PRN ×2 (05:49→12:47)
[2017-05-22 05:57] LABS: UR BACTERIA RARE /HPF (NONE SEEN); UR SQUAMOUS EPITHELIAL CELL RARE /HPF (FEW); URINE RBCS 0-2 /HPF (0)
[2017-05-22 06:55] LABS: ADD SCAN DIFF NO
[2017-05-22 07:01] LABS: ABNORMAL IP MESSAGE 1; BASOPHILS % 0.4 % (0.0-2.0); EOSINOPHILS # 0.1 10^3/ul (0.0-0.5); EOSINOPHILS % 1.7 % (0.0-7.0); HEMOGLOBIN 12.6 g/dl (14.0-18.0); LYMPHOCYTES # 1.7 10^3/ul (0.8-2.9); LYMPHOCYTES % 24.3 % (15.0-51.0); MEAN CORPUSCULAR HEMOGLOBIN 26.3 pg (29.0-33.0); MEAN CORPUSCULAR HGB CONC 33.2 g/dl (32.0-37.0); MEAN CORPUSCULAR VOLUME 79.3 fl (82.0-101.0); MONOCYTE # 0.5 10^3/ul (0.3-0.9); MONOCYTES % 7.3 % (0.0-11.0); NEUTROPHIL # 4.7 10^3/ul (1.6-7.5); NEUTROPHILS % 65.9 % (39.0-77.0); PLATELET COUNT 91 10^3/UL (140-415); RED BLOOD COUNT 4.79 10^6/ul (4.70-6.10); RED CELL DISTRIBUTION WIDTH 15.1 % (11.5-14.5); WHITE BLOOD COUNT 7.1 10^3/ul (4.8-10.8)
[2017-05-22 07:16] LABS: PHOSPHORUS 3.9 mg/dl (2.5-4.9)
[2017-05-22 07:34] VITALS: BP 114/67; RESP 16
[2017-05-22 07:39] LABS: CALCIUM 9.2 mg/dl (8.4-10.2); CREATININE 0.74 mg/dl (0.61-1.24)
[2017-05-22] MEDS: INSULIN ASPART [NOVOLOG] 3 ML PEN SC SCH ×4 (07:53→20:38)
[2017-05-22] MEDS: HEPARIN 5,000 UNIT/0.5 ML VIAL SC SCH ×2 (09:00→20:38)
[2017-05-22] MEDS: BENAZEPRIL 5 MG TAB PO SCH ×2 (09:00→20:33)
--- NOTE | 2017-05-22 15:55 | PN ---
Date/Time of Note Date/Time of Note DATE: 05/22/17 TIME: 15:50 Assessment/Plan VTE Prophylaxis VTE Prophylaxis Intervention: heparin Lines/Catheters IV [facility] Saline Lock Assessment/Plan Chief Complaint/Hosp Course 1. Status post traumatic fall with resultant comminuted, mildly impacted and minimally displaced distal radial fracture of the left arm and; distal radial and ulnar fractures of the right. Continue pain control. Status post orthopedic surgery evaluation. No surgical intervention as per surgery. 2. Neck pain status post mechanical fall. Closed nondisplaced fracture of the fifth cervical vertebra as per neurosurgery notes. MRI of the cervical spine showing no evidence for acute fractures or traumatic subluxations. Await further neurosurgery input. Continue pain control. Continue cervical collar. 3. Type 2 diabetes mellitus with a hemoglobin A1c 7.3. Continue sliding scale insulin. 4. Dyslipidemia. Suboptimal triglycerides, LDL, and total cholesterol. Continue statins. 5. Microcytic, hypochromic anemia. Etiology unclear. Will monitor H&H closely. Iron panel showing iron deficiency. Will start the patient on iron supplements. 6. Thrombocytopenia. Etiology unclear. Will monitor platelet count closely. If worsening, we will hold any anticoagulation. 7. Essential hypertension. We will start the patient on routine antihypertensives. Patient also was started on PRN antihypertensives for any systolic blood pressure readings greater than 160 mmHg. 8. Fluids, electrolytes, and nutrition. Carbohydrate controlled, low- cholesterol diet. 9. DVT prophylaxis. Subcutaneous heparin. 10. Gastrointestinal prophylaxis. Proton pump inhibitors. 11. Plan. Continue pain control. Continue neurosurgical recommendations. Await clearance from neurosurgery before discharge. Case discussed with Dr. Wallace. Problems: Subjective 24 Hr Interval Summary Free Text/Dictation Complains of neck pain. Exam/Review of Systems Vital Signs Vitals Vital Signs Date Time Temp Pulse Resp B/P Pulse Ox O2 Delivery O2 Flow Rate FiO2 05/22/17 07:34 98.6 68 16 114/67 96 05/20/17 22:07 Room Air Intake and Output 05/21/17 05/21/17 05/22/17 15:00 23:00 07:00 Intake Total 1320 ml 1500 ml Output Total 900 ml Balance 1320 ml 600 ml Exam General: Obese 57 year-old male lying in bed in no apparent distress. HEENT: Normocephalic, atraumatic. Eyes: Anicteric sclerae, conjunctivae clear. ENT: Nasal septum midline, oral mucosa moist. Neck supple, no JVD noticed. Respiratory: Bilaterally clear breath sounds. No use of accessory muscles of respiration. No adventitious breath sounds. Cardiovascular: S1, S2 heard. No murmurs or gallops. Abdomen: Soft, nontender, and nondistended. Bowel sounds positive in all 4 quadrants. Genitourinary: Deferred. Extremities: No cyanosis, no clubbing. Bilateral forearm plaster cast. Able to move all fingers on bilateral arms. Neurologic: Cranial nerves II through XII grossly intact. The patient is awake, alert, and oriented. Skin: Normal skin turgor. No skin rashes. Results Result Diagram: 05/22/17 0535 05/22/17 0535 Results 24 hrs Laboratory Tests Test 05/21/17 17:31 05/21/17 20:54 05/22/17 01:30 05/22/17 05:35 Bedside Glucose 171 154 Urine Color LT. YELLOW Urine Clarity CLEAR Urine pH 5.5 Urine Specific [place] 1.020 Urine Ketones NEGATIVE Urine Nitrite NEGATIVE Urine Bilirubin NEGATIVE Urine Urobilinogen 0.2 E.U./dL Urine Leukocyte Esterase NEGATIVE Urine Microscopic RBC 0-2 Urine Microscopic WBC 0-2 Urine Squamous Epithelial Cells RARE Urine Bacteria RARE Urine Hemoglobin TRACE Urine Glucose 0.1% H Urine Total Protein NEGATIVE White Blood Count 7.1 Red Blood Count 4.79 Hemoglobin 12.6 L Hematocrit 38.0 L Mean Corpuscular Volume 79.3 L Mean Corpuscular Hemoglobin 26.3 L Mean Corpuscular Hemoglobin Concent 33.2 Red Cell Distribution Width 15.1 H Platelet Count 91 L Mean Platelet Volume Neutrophils % 65.9 Lymphocytes % 24.3 Monocytes % 7.3 Eosinophils % 1.7 Basophils % 0.4 Nucleated Red Blood Cells % 0.0 Neutrophils # 4.7 Lymphocytes # 1.7 Monocytes # 0.5 Eosinophils # 0.1 Basophils # 0.0 Nucleated Red Blood Cells # 0.0 Sodium Level 142 Potassium Level 4.0 Chloride Level 98 Carbon Dioxide Level 28 Anion Gap 20 H Blood Urea Nitrogen 10 Creatinine 0.74 Glucose Level 146 Calcium Level 9.2 Phosphorus Level 3.9 Magnesium Level 2.0 Test 05/22/17 07:47 05/22/17 11:43 Bedside Glucose 137 214 Medications Medications Current Medications Ondansetron HCl (Zofran Inj) 4 mg Q6H PRN IV NAUSEA AND/OR VOMITING; Start at 23:30 Hydromorphone HCl (Dilaudid) 1 mg Q4H PRN IV SEVERE PAIN LEVEL 7-10 Last administered on 05/21/17 19:53; Admin Dose 1 MG; Start 05/20/17 at 23:30 Docusate Sodium (Colace) 100 mg Q12H PRN PO CONSTIPATION; Start 05/20/17 at 23: 30 Bisacodyl (Dulcolax) 5 mg DAILY PRN PO CONSTIPATION; Start 05/20/17 at 23:30 Diagnostic Test (Pha) (Accu-Chek) 1 ea 02 XX ; Start 05/22/17 at 02:00 Miscellaneous Information 1 ea NOTE XX ; Start 05/21/17 at 09:00 Glucose (Glutose) 15 gm Q15M PRN PO DECREASED GLUCOSE; Start 05/21/17 at 09:00 Glucose (Glutose) 22.5 gm Q15M PRN PO DECREASED GLUCOSE; Start 05/21/17 at 09: 00 Dextrose (D50w Syringe) 25 ml Q15M PRN IV DECREASED GLUCOSE; Start 05/21/17 at 09:00 Dextrose (D50w Syringe) 50 ml Q15M PRN IV DECREASED GLUCOSE; Start 05/21/17 at 09:00 Glucagon (Glucagen) 1 mg Q15M PRN IM DECREASED GLUCOSE; Start 05/21/17 at 09:00 Glucose (Glutose) 15 gm Q15M PRN BUCCAL DECREASED GLUCOSE; Start 05/21/17 at 09 :00 Acetaminophen/ Hydrocodone Bitart ([place] (5/325)) 1 tab Q4H PRN PO Pain Last administered on 05/22/17 12:47; Admin Dose 1 TAB; Start 05/21/17 at 11:00 Heparin Sodium (Porcine) (Heparin (5000 Units/0.5 ml)) 5,000 unit BID SC Last administered on 05/22/17 09:00; Admin Dose 5,000 UNIT; Start 05/21/17 at 21:00 Benazepril HCl (Lotensin) 5 mg BID PO Last administered on 05/22/17 09:00; Admin Dose 5 MG; Start 05/21/17 at 21:00 Atorvastatin Calcium (Lipitor) 40 mg HS PO Last administered on 05/21/17 20:48 ; Admin Dose 40 MG; Start 05/21/17 at 21:00 Hydralazine HCl (Apresoline) 10 mg Q6H PRN IV SBP>160; Start 05/21/17 at 14:30 Pantoprazole (Protonix Tab) 40 mg DAILY@06 PO Last administered on 05/22/17 05 :45; Admin Dose 40 MG; Start 05/22/17 at 06:00 CARLOS ETIENNE NP May 22, 2017 15:55
[2017-05-22 16:36] VITALS: BP 132/80; RESP 16
[2017-05-22] MEDS: CHOLECALCIFEROL 1,000 UNIT TAB PO SCH (17:26)
[2017-05-22] MEDS ORDERED: SOD FERRIC GLUC COMPLX 125 MG in SOD CHLORIDE 0.9% 100 ML IVPB SCH (17:30)
[2017-05-22 20:03] VITALS: BP 130/81; RESP 16
[2017-05-22] MEDS: ATORVASTATIN 40 MG TAB PO SCH (20:33)
[2017-05-23] MEDS: ACCU-CHEK XX SCH (02:00)
[2017-05-23 02:49] VITALS: BP 113/62; RESP 16
[2017-05-23] MEDS: PANTOPRAZOLE (EC) 40 MG TAB PO SCH (05:27)
[2017-05-23] MEDS: HYDROCODONE/APAP (5/325) TAB PO PRN (05:27)
[2017-05-23 07:24] LABS: ADD SCAN DIFF NO
[2017-05-23 07:32] LABS: ABNORMAL IP MESSAGE 1; BASOPHILS % 0.4 % (0.0-2.0); EOSINOPHILS # 0.1 10^3/ul (0.0-0.5); EOSINOPHILS % 1.9 % (0.0-7.0); HEMATOCRIT 38.7 % (42.0-52.0); LYMPHOCYTES # 1.8 10^3/ul (0.8-2.9); LYMPHOCYTES % 27.4 % (15.0-51.0); MEAN CORPUSCULAR HEMOGLOBIN 26.5 pg (29.0-33.0); MEAN CORPUSCULAR HGB CONC 33.6 g/dl (32.0-37.0); MONOCYTE # 0.5 10^3/ul (0.3-0.9); MONOCYTES % 7.6 % (0.0-11.0); NEUTROPHIL # 4.2 10^3/ul (1.6-7.5); NEUTROPHILS % 62.4 % (39.0-77.0); RED CELL DISTRIBUTION WIDTH 14.9 % (11.5-14.5); WHITE BLOOD COUNT 6.7 10^3/ul (4.8-10.8)
[2017-05-23 07:44] LABS: CALCIUM 8.9 mg/dl (8.4-10.2); CREATININE 0.75 mg/dl (0.61-1.24); POTASSIUM 4.1 mmol/L (3.5-5.1)
[2017-05-23 08:00] VITALS: BP 128/64; RESP 18
[2017-05-23] MEDS: BENAZEPRIL 5 MG TAB PO SCH (08:06)
[2017-05-23] MEDS: CHOLECALCIFEROL 1,000 UNIT TAB PO SCH (08:06)
[2017-05-23] MEDS: HEPARIN 5,000 UNIT/0.5 ML VIAL SC SCH (08:34)
[2017-05-23] MEDS: INSULIN ASPART [NOVOLOG] 3 ML PEN SC SCH ×2 (08:34→12:16)
--- NOTE | 2017-05-23 08:49 | CONS ---
DATE OF ADMISSION: 05/20/2017 DATE OF CONSULTATION: 05/21/2017 CHIEF COMPLAINT: Bilateral wrist pain. HISTORY OF PRESENT ILLNESS: This is a 57-year-old right-hand dominant male who works at [email or web address]. He was on a [employer] machine when he fell. He attempted to break his fall with his hand. He immediately developed pain in both of his wrist. He approximates the fall from 15 feet. He is complaining of pain in both wrists. He denies any numbness, tingling. He has no other complaints. PAST MEDICAL HISTORY: None. MEDICATION: None. SOCIAL HISTORY: He lives with his and children. He denies tobacco, alcohol or illicit drug use. FAMILY HISTORY: None. ALLERGIES: NO KNOWN DRUG ALLERGIES. PHYSICAL EXAMINATION: VITAL SIGNS: 99.7, 151/75, pulse of 81, respiratory rate of 20. GENERAL APPEARANCE: He is resting comfortably, in no acute distress. EXTREMITIES: Right wrist exam: There are no open wounds. There is no deformity. He is tender over the distal radius and distal ulnar. He has 5/5 function of his medial, ulnar and radial nerves with intact sensation to light touch in their respective distribution with a palpable radial artery pulse. Left wrist exam: No open wounds. No deformity. Tender to palpation over the distal radius and distal ulna. 5/5 function medial, ulnar and radial nerves with intact sensation to light touch in their respective distribution with a palpable radial artery pulse. IMAGING STUDIES: X-rays, right wrist: Multiple views of the right wrist demonstrate a comminuted intra-articular distal radius fracture. There is also fracture of the ulnar styloid. There is dorsal angulation. No other fractures are seen. X-rays of the left wrist: Multiple views of the left wrist demonstrate a comminuted intra-articular distal radius fracture. There is also a fracture of the ulnar styloid. Minimal dorsal angulation is seen. No other fractures are evident. IMPRESSION: A 57-year-old right-hand dominant male who had a fall at work resulting in bilateral closed intra-articular distal radius fractures. PLAN: A closed reduction maneuver of bilateral wrists was performed. He was placed in bilateral sugar-tong splints. I discussed with the patient and the family regarding treatment options. 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 He does not require surgery during this hospital stay. He will follow up in my office within 5-7 days. All questions are answered. Dictated By: Keena Peña MD /[email or web address] /Document#: [id number]
[2017-05-23 09:06] LABS: PLATELET COUNT 140 10^3/UL (140-415)
[2017-05-23] MEDS ORDERED: TRIMETHOPRIM/SULFAMETHOX (DS) TAB PO SCH (14:30)
[2017-05-23 14:37] VITALS: BP 111/61; RESP 20
--- NOTE | 2017-05-23 14:37 | PDOCDIS ---
Discharge Instructions DIAGNOSIS Discharge Diagnosis B/L wrist fractures CONDITION Patient Condition: Stable HOME CARE INSTRUCTIONS: Special Diet: Carbohydrate Controlled FOLLOW UP/APPOINTMENTS Follow-up Plan 1. Keena Peña MD Specialty: Orthopedic Surgery Office Address [id number] [place] [address] [place] [address] Office OTHER ORDERS: Other Orders: 1. Take medications as per prescription. 2. Follow-up with orthopedic surgeon (Casey) in one week. Please call for appointment. 3. Take pain medications as needed. CARLOS ETIENNE NP May 23, 2017 14:37
[2017-05-23] MEDS ORDERED: ATOR40TA68 PO (14:41)
[2017-05-23] MEDS ORDERED: Trimethoprim/Sulfamethox (Ds) PO (14:41)
[2017-05-23] MEDS ORDERED: SITA50TA2 PO (14:41)
[2017-05-23] MEDS ORDERED: HYDR-3498 PO (14:41)
[2017-05-23] MEDS ORDERED: CHOL100062 PO (14:41)
[2017-05-23] MEDS ORDERED: BENA5TAB2 PO (14:41)
--- NOTE | 2017-05-23 14:54 | PN ---
Date/Time of Note Date/Time of Note DATE: 05/23/17 TIME: 14:47 Assessment/Plan VTE Prophylaxis VTE Prophylaxis Intervention: heparin Lines/Catheters IV Catheter Type (from Nrs): Saline Lock Assessment/Plan Chief Complaint/Hosp Course 1. Status post traumatic fall with resultant comminuted, mildly impacted and minimally displaced distal radial fracture of the left arm and; distal radial and ulnar fractures of the right. Continue pain control. Status post orthopedic surgery evaluation. No surgical intervention as per surgery. 2. Neck pain status post mechanical fall. MRI of the cervical spine showing no evidence for acute fractures or traumatic subluxations. Await further neurosurgery input. Continue pain control. Continue cervical collar. As per neurosurgery, the patient needs to be continued on C-collar even if the cervical MRI is negative. Neurosurgery recommending flexion/extension X-rays of the cervial spine. 3. Type 2 diabetes mellitus with a hemoglobin A1c 7.3. Continue sliding scale insulin. 4. Dyslipidemia. Suboptimal triglycerides, LDL, and total cholesterol. Continue statins. 5. Microcytic, hypochromic anemia. Etiology unclear. Will monitor H&H closely. Iron panel showing iron deficiency. Continue iron supplements. 6. Thrombocytopenia. Etiology unclear. Will monitor platelet count closely. If worsening, we will hold any anticoagulation. 7. Essential hypertension. We will start the patient on routine antihypertensives. Patient also on PRN antihypertensives for any systolic blood pressure readings greater than 160 mmHg. 8. Fluids, electrolytes, and nutrition. Carbohydrate controlled, low- cholesterol diet. 9. UTI. Culture positive for Gram negative rodsi. Will avoid fluoroquinolones because of underlying bilateral wrist fractures. 10. DVT prophylaxis. Subcutaneous heparin. 11. Gastrointestinal prophylaxis. Proton pump inhibitors. 12. Plan. Start antibiotics for underlying urinary tract infection. Continue pain control. Continue neurosurgical recommendations. Await clearance from neurosurgery before discharge. Case discussed with Dr. Wallace. Problems: Subjective 24 Hr Interval Summary Free Text/Dictation Complains of bilateral wrist pain as well as neck pain. Exam/Review of Systems Vital Signs Vitals Vital Signs Date Time Temp Pulse Resp B/P Pulse Ox O2 Delivery O2 Flow Rate FiO2 05/23/17 14:37 98.4 66 20 111/61 96 05/20/17 22:07 Room Air Intake and Output 05/22/17 05/22/17 05/23/17 15:00 23:00 07:00 Intake Total 1790 ml 480 ml Balance 1790 ml 480 ml Exam General: Obese 57 year-old male lying in bed in no apparent distress. HEENT: Normocephalic, atraumatic. Eyes: Anicteric sclerae, conjunctivae clear. ENT: Nasal septum midline, oral mucosa moist. Neck: C-collar in place. Respiratory: Bilaterally clear breath sounds. No use of accessory muscles of respiration. No adventitious breath sounds. Cardiovascular: S1, S2 heard. No murmurs or gallops. Abdomen: Soft, nontender, and nondistended. Bowel sounds positive in all 4 quadrants. Genitourinary: Deferred. Extremities: No cyanosis, no clubbing. Bilateral forearm plaster cast. Able to move all fingers on bilateral arms. Neurologic: Cranial nerves II through XII grossly intact. The patient is awake, alert, and oriented. Skin: Normal skin turgor. No skin rashes. Results Result Diagram: 05/23/17 0535 05/23/17 0533 Results 24 hrs Laboratory Tests Test 05/22/17 17:49 05/22/17 20:30 05/23/17 05:33 05/23/17 05:35 Bedside Glucose 127 147 Sodium Level 142 Potassium Level 4.1 Chloride Level 99 Carbon Dioxide Level 24 Anion Gap 23 H Blood Urea Nitrogen 12 Creatinine 0.75 Glucose Level 167 Calcium Level 8.9 Phosphorus Level 4.0 Magnesium Level 2.0 White Blood Count 6.7 Red Blood Count 4.90 Hemoglobin 13.0 L Hematocrit 38.7 L Mean Corpuscular Volume 79.0 L Mean Corpuscular Hemoglobin 26.5 L Mean Corpuscular Hemoglobin Concent 33.6 Red Cell Distribution Width 14.9 H Platelet Count 140 # Mean Platelet Volume Neutrophils % 62.4 Lymphocytes % 27.4 Monocytes % 7.6 Eosinophils % 1.9 Basophils % 0.4 Nucleated Red Blood Cells % 0.0 Neutrophils # 4.2 Lymphocytes # 1.8 Monocytes # 0.5 Eosinophils # 0.1 Basophils # 0.0 Nucleated Red Blood Cells # 0.0 Test 05/23/17 08:04 05/23/17 12:00 Bedside Glucose 149 148 Medications Medications Current Medications Ondansetron HCl (Zofran Inj) 4 mg Q6H PRN IV NAUSEA AND/OR VOMITING; Start at 23:30 Hydromorphone HCl (Dilaudid) 1 mg Q4H PRN IV SEVERE PAIN LEVEL 7-10 Last administered on 05/21/17 19:53; Admin Dose 1 MG; Start 05/20/17 at 23:30 Docusate Sodium (Colace) 100 mg Q12H PRN PO CONSTIPATION; Start 05/20/17 at 23: 30 Bisacodyl (Dulcolax) 5 mg DAILY PRN PO CONSTIPATION; Start 05/20/17 at 23:30 Diagnostic Test (Pha) (Accu-Chek) 1 ea 02 XX ; Start 05/22/17 at 02:00 Miscellaneous Information 1 ea NOTE XX ; Start 05/21/17 at 09:00 Glucose (Glutose) 15 gm Q15M PRN PO DECREASED GLUCOSE; Start 05/21/17 at 09:00 Glucose (Glutose) 22.5 gm Q15M PRN PO DECREASED GLUCOSE; Start 05/21/17 at 09: 00 Dextrose (D50w Syringe) 25 ml Q15M PRN IV DECREASED GLUCOSE; Start 05/21/17 at 09:00 Dextrose (D50w Syringe) 50 ml Q15M PRN IV DECREASED GLUCOSE; Start 05/21/17 at 09:00 Glucagon (Glucagen) 1 mg Q15M PRN IM DECREASED GLUCOSE; Start 05/21/17 at 09:00 Glucose (Glutose) 15 gm Q15M PRN BUCCAL DECREASED GLUCOSE; Start 05/21/17 at 09 :00 Acetaminophen/ Hydrocodone Bitart ([place] (5/325)) 1 tab Q4H PRN PO Pain Last administered on 05/23/17 05:27; Admin Dose 1 TAB; Start 05/21/17 at 11:00 Heparin Sodium (Porcine) (Heparin (5000 Units/0.5 ml)) 5,000 unit BID SC Last administered on 05/23/17 08:34; Admin Dose 5,000 UNIT; Start 05/21/17 at 21:00 Benazepril HCl (Lotensin) 5 mg BID PO Last administered on 05/23/17 08:06; Admin Dose 5 MG; Start 05/21/17 at 21:00 Atorvastatin Calcium (Lipitor) 40 mg HS PO Last administered on 05/22/17 20:33 ; Admin Dose 40 MG; Start 05/21/17 at 21:00 Hydralazine HCl (Apresoline) 10 mg Q6H PRN IV SBP>160; Start 05/21/17 at 14:30 Pantoprazole 40 mg 40 mg DAILY@06 PO Last administered on 05/23/17 05:27; Admin Dose 40 MG; Start 05/22/17 at 06:00 Ferric Sodium Gluconate Complex/ Sodium Chloride (Ferrlecit/NS) 110 ml @ 100 mls/hr Q24H IVPB Last administered on 05/22/17 18:27; Admin Dose 100 MLS/HR; Start 05/22/17 at 17:30; Stop 05/24/17 at 18:35 Cholecalciferol (Vitamin D) 1,000 unit DAILY PO Last administered on 05/23/17 08:06; Admin Dose 1,000 UNIT; Start 05/22/17 at 16:30 Trimethoprim/ Sulfamethoxazole (Bactrim (Ds)) 1 tab BID PO ; Start 05/23/17 at 14:30 Procedures Procedures Name: ALLISON BLACKWELL Age/Sex: 57/M Attend Dr: LEANDRA KELLY Acct: [id number] MR# : [id number] : 1960 Location: [id number] Admit: 05/20/17 Specimen: [id number] Status: Resulted Edil: 05/22/170 Rcvd: 05/22 Source: [facility] Sp Descrip: Procedure Result Microbiology URINE CULTURE Preliminary Organism 1 GRAM NEGATIVE SARAH COLONY COUNT >100,000 CFU/ml CARLOS ETIENNE NP May 23, 2017 14:54
--- NOTE | 2017-05-23 23:50 | DS ---
Date/Time of Note Date/Time of Note DATE: 05/23/17 TIME: 23:48 Discharge Summary Admission/Discharge Info Admit Date/Time May 20, 2017 at 20:46 Discharge Date/Time May 23, 2017 at 17:25 Discharge Diagnosis 1. Status post traumatic fall with resultant comminuted, mildly impacted and minimally displaced distal radial fracture of the left arm and; distal radial and ulnar fractures of the right. 2. Neck pain status post mechanical fall. MRI of the cervical spine showing no evidence for acute fractures or traumatic subluxations. 3. Type 2 diabetes mellitus with a hemoglobin A1c 7.3. 4. Dyslipidemia. 5. Microcytic, hypochromic anemia. 6. Iron deficiency. 7. Thrombocytopenia. 8. Essential hypertension. 9. UTI. 10. Obesity. Patient Condition: Stable Consults 1. Keena Peña MD, Orthopedic Surgery. 2. Bradly Nicole MD, Neurosurgery. Procedures Cervical Spine MRI IMPRESSION: 1. No evidence for acute fractures or traumatic subluxations. 2. 3 mm AP by 6.5 mm superior inferiorly central disk extrusion superimposed on large broad-based disk osteophyte complex at C6-7. 3. Multilevel broad-based disk osteophyte complexes at the C3-4 through C7-T1 levels with moderate central canal stenosis at C6-7 and mild at C3-4, C5-6 and C7-T1 levels. 4. Multilevel neural foraminal stenosis at the C3-4 and C6-7 levels. 5. Straightening of the normal cervical lordosis. Cervical Spine CT IMPRESSION: Approximate 3 x 4 mm triangular calcific density is seen anterior to the superior endplate of C5 vertebral body. Although this appears corticated and may be chronic, an acute avulsion fracture fragment is not excluded. MRI of the cervical spine is recommended for further evaluation. Degenerative changes. At C6-7 there is disk space narrowing, diffuse disk bulge, vertebral body osteophytes and the appearance of a moderate left posterior disk protrusion with impression on the anterior spinal cord with moderate central spinal stenosis and mild bilateral foraminal stenosis. Thoracic Spine CT IMPRESSION: No acute fracture or dislocation seen. Mild degenerative disk changes at multiple levels in the thoracic spine. Lumbar Spine CT IMPRESSION: No acute fracture or dislocation seen. Degenerative changes noted. Brain CT IMPRESSION: 1. No intracranial hemorrhage, mass effect or midline shift. Hx of Present Illness Chief complaint: Fall injury to arms pain in the neck This is a very pleasant 57-year-old male that presents to the emergency department, brought in by himself, after he stated he fell roughly 10-15 feet just prior to arrival. 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 The patient landed on both outstretched hands and hit the front of his head. He does complain of mild neck pain and severe pain of his upper extremities. He denies any numbness or tingling of the upper extremities. He also is complaining of lower back pain that he states exacerbated when he ambulates. He complained of mild numbness of the lateral aspect of the left thigh. He stated he has used the bathroom since the incident and denied any gross hematuria. He states the headache is mild, frontal, 2 out of 10 in intensity with no changes in vision. He did not experience any hemoptysis or hematemesis. He is right-handed dominant. Hospital Course The patient's bilateral arm X-rays showed comminuted, mildly impacted and minimally displaced distal radial fracture of the left arm and; distal radial and ulnar fractures of the right. The patient was evaluated by orthopedics and recommended no immediate surgical interventions. Orthopedic Surgery did a closed reduction maneuver of bilateral wrists with placement in bilateral sugar- tong splints. Orthopedic Surgery recommended outpatient follow-up in 5-7 days. The patient had neck pain status post mechanical fall. MRI of the cervical spine was showing no evidence for acute fractures or traumatic subluxations. The patient was maintained on a cervical collar. Neurosurgery mentioned about possibly getting flexion/extension X-rays of the cervical spine. However, later neurosurgery cleared the patient to be discharged home with outpatient neurosurgery follow-up. The patient has underlying type II DM. He had a hemoglobin A1c of 7.3. He was maintained on sliding scale insulin . He was also noticed to have dyslipidemia. He was maintained on statins for the same. The patient had microcytic, hypochromic anemia with underlying iron deficiency. He was maintained on iron supplements. The patient also had hypertension. He was started on ACEIs. The patient also had a UTI. He was started on appropriate antibiotics. Fluoroquinolones were avoided because of underlying B/L wrist fractures. The patient also had thrombocytopenia of unclear etiology that resolved towards the end of the hospital stay. The patient had a stable course. He was cleared by consultants to be discharged home. Discharge Instructions 1. Take medications as per prescription. 2. Follow-up with orthopedic surgeon (Casey) in one week. Please call for appointment. 3. Follow-up with neurosurgery in 2 weeks. 4. Take pain medications as needed. The patient verbalized understanding of his discharge instructions Case discussed with Dr. Wallace. Home Meds Active Scripts Sitagliptin* (Januvia*) 50 Mg Tablet, 50 MG PO DAILY, #30 TAB Prov:CARLOS ETIENNE NP 05/23/17 Cholecalciferol* (Vitamin D3*) 1,000 Unit Tablet, 1000 UNIT PO DAILY for 30 Days , #30 TAB Prov:CARLOS ETIENNE NP 05/23/17 Hydrocodone Bit-Acetaminophen (Hydrocodone Bit-APAP) 5-325MG Tablet, 1 TAB PO Q4H Y for Pain, #30 TAB Prov:CARLOS ETIENNE NP 05/23/17 Benazepril Hcl* (Benazepril Hcl*) 5 Mg Tablet, 5 MG PO BID for 30 Days, #60 TAB Prov:CARLOS ETIENNE NP 05/23/17 Atorvastatin* (Atorvastatin*) 40 Mg Tablet, 40 MG PO HS for 30 Days, #30 TAB Prov:CARLOS ETIENNE NP 05/23/17 [Trimethoprim/Sulfamethox (Ds)] 1 TAB TAB No Conflict Check, 1 TAB PO BID for 3 Days, #6 TAB Prov:CARLOS ETIENNE NP 05/23/17 Reported Medications Metformin* (Glucophage*) 850 Mg Tablet, 850 MG PO WITH BREAKFAST DINNE, #60 TAB 05/20/17 Follow-up Plan 1. Follow-up with orthopedics in 1 week. 2. Follow-up with neurosurgery in 2 weeks. Primary Care Provider Care Physician No Primary Time spent on discharge: > 30 minutes Pending Labs Laboratory Tests Test 05/23/17 05:33 05/23/17 05:35 05/23/17 08:04 05/23/17 12:00 Sodium Level 142mmol/L (135-144) Potassium Level 4.1mmol/L (3.5-5.1) Chloride Level 99mmol/L (97-110) Carbon Dioxide Level 24mmol/L (21-31) Anion Gap 23 (8-16) Blood Urea Nitrogen 12mg/dl (7-20) Creatinine 0.75mg/dl (0.61-1.24) Glucose Level 167mg/dl (70-220) Calcium Level 8.9mg/dl (8.4-10.2) Phosphorus Level 4.0mg/dl (2.5-4.9) Magnesium Level 2.0mg/dl (1.7-2.5) White Blood Count 6.710^3/ul (4.8-10.8) Red Blood Count 4.9010^6/ul (4.70-6.10) Hemoglobin 13.0g/dl (14.0-18.0) Hematocrit 38.7% (42.0-52.0) Mean Corpuscular Volume 79.0fl (82.0-101.0) Mean Corpuscular Hemoglobin 26.5pg (29.0-33.0) Mean Corpuscular Hemoglobin Concent 33.6g/dl (32.0-37.0) Red Cell Distribution Width 14.9% (11.5-14.5) Platelet Count 21498^3/UL (140-415) Mean Platelet Volume fl (7.4-10.4) Neutrophils % 62.4% (39.0-77.0) Lymphocytes % 27.4% (15.0-51.0) Monocytes % 7.6% (0.0-11.0) Eosinophils % 1.9% (0.0-7.0) Basophils % 0.4% (0.0-2.0) Nucleated Red Blood Cells % 0.0/100WBC (0.0-0.0) Neutrophils # 4.210^3/ul (1.6-7.5) Lymphocytes # 1.810^3/ul (0.8-2.9) Monocytes # 0.510^3/ul (0.3-0.9) Eosinophils # 0.110^3/ul (0.0-0.5) Basophils # 0.010^3/ul (0.0-0.1) Nucleated Red Blood Cells # 0.010^3/ul (0.0-0.0) Bedside Glucose 149mg/dL (70-220) 148mg/dL (70-220) CARLOS ETIENNE NP 16, 2017 23:50
== END 2017-05-23 17:25 | disposition home or self-care (01) | DRG 563 ==
LOC: E/R 14:54 → MS2 20:46
PROVIDERS: ADMIT Family Medicine; ATTEND Family Medicine
PROC: 2W3DX1Z Immobilization of Left Lower Arm using Splint (ICD-10-PCS; principal; 2017-05-20)
PROC: 2W3CX1Z Immobilization of Right Lower Arm using Splint (ICD-10-PCS; 2017-05-20)
DX: S52.592A Other fractures of lower end of left radius, initial encounter for closed fracture (principal); D69.6 Thrombocytopenia, unspecified; S09.90XA Unspecified injury of head, initial encounter; N39.0 Urinary tract infection, site not specified; E11.9 Type 2 diabetes mellitus without complications; D50.9 Iron deficiency anemia, unspecified; I10 Essential (primary) hypertension; S52.501A Unspecified fracture of the lower end of right radius, initial encounter for closed fracture; S52.602A Unspecified fracture of lower end of left ulna, initial encounter for closed fracture; R41.3 Other amnesia; E78.5 Hyperlipidemia, unspecified; E66.9 Obesity, unspecified; Y92.69 Other specified industrial and construction area as the place of occurrence of the external cause; Y93.39 Activity, other involving climbing, rappelling and jumping off; W30.89XA Contact with other specified agricultural machinery, initial encounter; Z68.37 Body mass index [BMI] 37.0-37.9, adult; Z79.84 Long term (current) use of oral hypoglycemic drugs; Z87.891 Personal history of nicotine dependence
CPT/HCPCS: 36415; 70450; 71010; 72125; 72128; 72131; 72141; 80048; 80053; 80061; 81001; 82306; 82652; 82728; 82962; 83036; 83540; 83735; 84100; 84443; 85025; 85610; 85730; 87086; 96374; 96375; 96376; C9113; J1170; J1644; J1815; J2405; J2916; J7030